=== PATIENT | male | born 2000 | race Hispanic/Latino ===

== ENCOUNTER 2022-01-30 02:44 | Emergency (ER) | payer SELFPAY ==
[2022-01-30 04:36] LABS: Basophils # (Auto) 0.1 K/mm3 (0.0-0.1); Basophils % (Auto) 0.5 % (0.0-1.8); Eosinophils % (Auto) 0.2 % (0.0-4.3); Hematocrit 41.7 % (35.5-45.6); Hemoglobin 13.7 gm/dl (11.8-15.2); Lymphocytes # (Auto) 1.2 K/mm3 (1.2-5.4); Lymphocytes % (Auto) 9.8 % (13.4-35.0); Mean Corpuscular HGB Conc 33 % (32-34); Mean Corpuscular Volume 83 fl (84-94); Monocytes # (Auto) 0.6 K/mm3 (0.0-0.8); Monocytes % (Auto) 4.8 % (0.0-7.3); Platelet Count 172 K/mm3 (140-440); Red Blood Count 5.03 M/mm3 (3.65-5.03); Red Cell Distribution Width 13.1 % (13.2-15.2)
--- NOTE | 2022-01-30 04:49 | XRay Report ---
XR chest 1V ap INDICATION / CLINICAL INFORMATION: unresponsive. COMPARISON: None available. FINDINGS: SUPPORT DEVICES: None. HEART /PULMONARY VASCULATURE: No significant abnormality. LUNGS / PLEURA: No significant pulmonary or pleural abnormality. No pneumothorax. ADDITIONAL FINDINGS: No significant additional findings. IMPRESSION: 1. No acute findings. Signer Name: Elvin Green MD Signed: 01/30/2022 4:45 AM Workstation Name: [id number]
[2022-01-30 05:16] LABS: Alanine Aminotransferase 13 units/L (7-56); Albumin 4.2 g/dL (3.9-5); BUN/Creatinine Ratio 11; Blood Urea Nitrogen 11 mg/dL (9-20); Calcium 8.9 mg/dL (8.4-10.2); Hemolysis Index 9
--- NOTE | 2022-01-30 05:27 | Emergency Department Report ---
ED General Adult HPI - General Chief complaint: Overdose Stated complaint: DRUG OD Time Seen by Provider: 01/30/22 03:51 Source: patient Mode of arrival: Stretcher Limitations: No Limitations - History of Present Illness Initial comments: patient presents 2/2 being found unresponsive. Per EMS, patient woke up after getting 4 mg of narcan. Patient states he took 2.5 pills of percocet (does not know the dose). Denies CP, SOB, abd pain, back pain, numbness, weakness. - Related Data Allergies Allergy/AdvReac Type Severity Reaction Status Date / Time No Known Allergies Allergy Unverified 01/30/22 03:43 ED Review of Systems ROS: Stated complaint: DRUG OD Other details as noted in HPI Comment: All other systems reviewed and negative Constitutional: denies: chills, fever ED Past Medical Hx - Past Medical History Previous Medical History?: No - Surgical History Past Surgical History?: No - Social History Smoking Status: Current Every Day Smoker Substance Use Type: Heroin ED Physical Exam - General Limitations: No Limitations General appearance: other (somnolent) - Head Head exam: Present: atraumatic, normocephalic - Eye Eye exam: Present: PERRL, EOMI - ENT ENT exam: Present: mucous membranes moist, other (airway patent) - Neck Neck exam: Present: other (supple; no JVD) - Respiratory Respiratory exam: Present: other (good air entry, nml I:E, CTAB, no use of VALERIA) - Cardiovascular Cardiovascular Exam: Present: regular rate. Absent: rubs, gallop - GI/Abdominal GI/Abdominal exam: Present: soft, normal bowel sounds. Absent: distended, tenderness - Extremities Exam Extremities exam: Present: full ROM. Absent: tenderness - Back Exam Back exam: Present: full ROM. Absent: tenderness - Neurological Exam Neurological exam: Present: oriented X3, CN II-XII intact, motor sensory deficit, other (GCS 14/15 ([id number])) - Skin Skin exam: Present: warm, normal color ED Course Vital Signs 01/30/22 03:34 Temperature 98 F Pulse Rate 88 Respiratory 18 Rate Blood Pressure 154/98 O2 Sat by Pulse 100 Oximetry ED Medical Decision Making - Lab Data Result diagrams: 01/30/22 04:20 01/30/22 04:20 Laboratory Tests 05/01/30/22 01/30/22 04:20 04:20 04:20 WBC 11.7 H RBC 5.03 Hgb 13.7 Hct 41.7 MCV 83 L MCH 27 L MCHC 33 RDW 13.1 L Plt Count 172 Lymph % (Auto) 9.8 L Spencer % (Auto) 4.8 Eos % (Auto) 0.2 Baso % (Auto) 0.5 Lymph # (Auto) 1.2 Spencer # (Auto) 0.6 Eos # (Auto) 0.0 Baso # (Auto) 0.1 Seg Neutrophils % 84.7 H Seg Neutrophils # 9.9 H Sodium 137 Potassium 3.7 Chloride 100.9 Carbon Dioxide 25 Anion Gap 15 BUN 11 Creatinine 1.0 Estimated GFR > 60 BUN/Creatinine Ratio 11 Glucose 100 Calcium 8.9 Total Bilirubin 0.30 AST 18 ALT 13 Alkaline Phosphatase 67 Total Creatine Kinase Troponin T < 0.010 Total Protein 6.1 L Albumin 4.2 Albumin/Globulin Ratio 2.2 Salicylates < 0.3 L Acetaminophen U Benzodiazepines Scrn Urine Cocaine Screen U Marijuana (THC) Screen Plasma/Serum Alcohol 01/30/22 01/30/22 01/30/22 04:20 04:20 04:20 WBC RBC Hgb Hct MCV MCH MCHC RDW Plt Count Lymph % (Auto) Spencer % (Auto) Eos % (Auto) Baso % (Auto) Lymph # (Auto) Spencer # (Auto) Eos # (Auto) Baso # (Auto) Seg Neutrophils % Seg Neutrophils # Sodium Potassium Chloride Carbon Dioxide Anion Gap BUN Creatinine Estimated GFR BUN/Creatinine Ratio Glucose Calcium Total Bilirubin AST ALT Alkaline Phosphatase Total Creatine Kinase 93 Troponin T Total Protein Albumin Albumin/Globulin Ratio Salicylates Acetaminophen 5.0 L U Benzodiazepines Scrn Urine Cocaine Screen U Marijuana (THC) Screen Plasma/Serum Alcohol < 0.01 01/30/22 05:34 WBC RBC Hgb Hct MCV MCH MCHC RDW Plt Count Lymph % (Auto) Spencer % (Auto) Eos % (Auto) Baso % (Auto) Lymph # (Auto) Spencer # (Auto) Eos # (Auto) Baso # (Auto) Seg Neutrophils % Seg Neutrophils # Sodium Potassium Chloride Carbon Dioxide Anion Gap BUN Creatinine Estimated GFR BUN/Creatinine Ratio Glucose Calcium Total Bilirubin AST ALT Alkaline Phosphatase Total Creatine Kinase Troponin T Total Protein Albumin Albumin/Globulin Ratio Salicylates Acetaminophen U Benzodiazepines Scrn Presumptive positive Urine Cocaine Screen Presumptive positive U Marijuana (THC) Screen Presumptive positive Plasma/Serum Alcohol EKG: HR 72, SR, nml intervals, no significant ST changes in contiguous leads CXR: no acute cardiopulmonary process CT head: no acute intracranial process. - Medical Decision Making Poison control consulted. they recommend supportive care, repeat CK and obs x 12 hours minimum. Critical care attestation.: If time is entered above; I have spent that time in minutes in the direct care of this critically ill patient, excluding procedure time. ED Disposition Clinical Impression: Intoxication due to misuse of recreational drug, Drug overdose Disposition: 30 STILL A PATIENT Is pt being admited?: No Does the pt Need Aspirin: No Condition: Stable Time of Disposition: 06:40 (Patient care transferred to Dr. Ventura. Sign out was given by me to him. )
--- NOTE | 2022-01-30 05:53 | Cat Scan Report ---
CT HEAD WITHOUT CONTRAST INDICATION / CLINICAL INFORMATION: AMS. TECHNIQUE: All CT scans at this location are performed using CT dose reduction for ALARA by means of automated exposure control. COMPARISON: None available. FINDINGS: BRAIN PARENCHYMA: No acute intracranial hemorrhage. No evidence of recent infarct. No mass effect or midline shift. Probable arachnoid cyst along the left sylvian fissure. VENTRICULAR SYSTEM/EXTRA-AXIAL SPACES: Ventricles are normal for age. No extra-axial fluid collection . ORBITS: Normal as visualized. SKELETAL SYSTEM/SOFT TISSUES: Normal bones and soft tissues. PARANASAL SINUSES/MASTOID AIR CELLS: No significant abnormality. ADDITIONAL FINDINGS: None. IMPRESSION: 1. No acute intracranial abnormality. Signer Name: Elvin Green MD Signed: 01/30/2022 5:49 AM Workstation Name: [id number]
[2022-01-30 05:57] LABS: Amphetamine Screen,Urine PRESUMPTIVE NEGATIVE; Benzodiazepines Screen,Urine PRESUMPTIVE POSITIVE; Cannabinoid Screen,Urine PRESUMPTIVE POSITIVE; Cocaine Screen,Urine PRESUMPTIVE POSITIVE; Methadone Screen,Urine PRESUMPTIVE NEGATIVE; Opiate Screen,Urine PRESUMPTIVE NEGATIVE
[2022-01-30 06:19] LABS: Bilirubin,Urine NEG (Negative); Blood,Urine NEG (Negative); Calcium Oxalate Crystals,Urine FEW; Color,Urine Yellow (Yellow); Mucus,Urine 1+ /HPF; Protein,Urine <15 mg/dL mg/dL (Negative)
[2022-01-30 13:41] VITALS: BP 90/48
--- NOTE | 2022-01-31 12:10 | Electrocardiograph Report ---
[facility] Test Date: 2022-01-30 Test Time: 04:01:54 Pat Name: ANNA OLIVO Department: Room: Gender: M Smocker: DOUGLAS : 2000 Requested By: KEKE COTO Order Number: [id number] Reading MD: Chris Crocker Measurements Intervals [place] Rate: 70 P: 48 CA: 156 QRS: 74 QRSD: 92 T: 51 QT: 379 QTc: 409 Interpretive Statements Sinus rhythm No previous ECG available for comparison Electronically Signed On 01-31-2022 12:09:50 EDT by Chris Crocker
== END 2022-01-30 14:13 | disposition home or self-care (01) ==
LOC: EDBD → ED 02:44
DX: T50.901A Poisoning by unspecified drugs, medicaments and biological substances, accidental (unintentional), initial encounter (principal); F17.200 Nicotine dependence, unspecified, uncomplicated; Y92.89 Other specified places as the place of occurrence of the external cause
CPT/HCPCS: 36415; 70450; 71045; 80053; 80307; 80320; 81001; 82550; 84484; 85025; 93005; 99285; G0480